=== PATIENT | female | born 1975 | race Caucasian/White ===

== ENCOUNTER 2017-01-13 17:19 | Emergency (ER) | payer MEDICAID, OTHER ==
[~2017-01-13] VITALS: Ht 162.6 cm; Wt 70.0 kg
[2017-01-13] MEDS ORDERED: TETRACAINE 0.5% OPHTH DROPS 4ML OP ONE (20:15)
[2017-01-13] MEDS ORDERED: FLUORESCEIN SODIUM 1MG/STRIP OP ONE (20:15)
[2017-01-13 23:30] VITALS: BP 121/79
== END 2017-01-14 00:07 | disposition home or self-care (01) ==
LOC: ER 17:19
DX: H57.11 Ocular pain, right eye (principal); F17.210 Nicotine dependence, cigarettes, uncomplicated; Z88.0 Allergy status to penicillin; Z90.49 Acquired absence of other specified parts of digestive tract; Y08.89XA Assault by other specified means, initial encounter; Y93.44 Activity, trampolining; Y92.89 Other specified places as the place of occurrence of the external cause
CPT/HCPCS: 70486; 99284; Z7610